=== PATIENT | female | born 1985 | race Hispanic/Latino ===

== ENCOUNTER 2017-04-29 02:14 | Inpatient (IN) | payer MEDICAID, OTHER, SELFPAY ==
[2017-04-29] MEDS: Lactated Ringer's 1,000 ML IV SCH ×3 (03:00→23:33)
[2017-04-29] MEDS ORDERED: Lidocaine 1% (PF) 30 ML VIAL SC PRN (03:34)
[2017-04-29] MEDS ORDERED: Carboprost 250 MCG/ML AMP IM PRN (03:34)
[2017-04-29] MEDS ORDERED: Promethazine HCl 25 MG/ML VIAL IM PRN (03:34)
[2017-04-29] MEDS ORDERED: LR / Pitocin 40 units/1000 ml 1,000 ML IV PRN (03:34)
[2017-04-29] MEDS ORDERED: Ibuprofen 800 MG TAB PO PRN (03:34)
[2017-04-29] MEDS ORDERED: Methylergonovine 0.2 MG/ML VIAL IM PRN (03:34)
[2017-04-29] MEDS ORDERED: HYDROcodone/Acetaminophen 5/325 mg Tablet PO PRN (03:34)
[2017-04-29] MEDS ORDERED: Acetaminophen 500 MG TAB PO PRN (03:34)
[2017-04-29] MEDS ORDERED: Diphenoxylate HCl/Atropine Tablet PO PRN (03:34)
[2017-04-29] MEDS ORDERED: Ondansetron HCl/PF 4 MG/2 ML Vial IVP PRN (03:34)
[2017-04-29] MEDS ORDERED: Misoprostol 200 MCG TAB PR PRN (03:34)
[2017-04-29 03:41] VITALS: BMI 37.5
--- NOTE | 2017-04-29 03:41 | PDOC.LDHP ---
Labor and Delivery H&P Chief complaint: contractions HPI: 31 yo @ 40.1 by LMP and 10.4w US here with complaint of contractions since yesterday morning. Contractions started every 5-10 minutes and progressively became more frequent throughout the day. She noticed a small amount of blood tinged mucus per vagina earlier in the day. She denies des loss of fluid or vaginal bleeding. There is consistent movement. Her has been significant for elevated blood glucose on 1 hour GTT, however 3 hour was negative. Previous deliveries were uncomplicated Current gestational age (weeks): 40 (40.1) Due date: 04/28/17 Dating criteria: last menstrual period, first trimester ultrasound Grav: 3 Para: 2 Current complications: none Abnormal US findings: No Current medications: pre- vitamins Allergies/Adverse Reactions: Allergies Allergy/AdvReac Type Severity Reaction Status Date / Time No Known Allergies Allergy Unverified 04/29/17 02:33 Social history: none - Physical Exam Vital signs reviewed and normal: yes General: breathing through contractions Heart: RRR Lungs: CTAB Abdomen: gravid (NTTP) Extremeties: no edema FHT: category 1, variability present, absent or minimal variables [place] contractions every: 3-5 - Vaginal Exam cm dilated: 5 Effacement: 75% Station: -1 - OB Labs Blood type: O RH: positive Antibody Screen: negative HIV: negative RPR: negative HEPSAg: negative 1 hour GCT: positive 3 hour GTT: negative GBS: negative Urine drug screen: negative Rubella: immune - Assessment L&D Assessment: term patient in labor - Plan Plan: admit to L&D, labor augmentation if indicated -: This is a term in labor. Will admit to L&D. Patient is requesting epidural anesthesia, consult has been placed. Make NPO except ice chips. Continuous monitoring once epidural is placed. Augment labor with fluid bolus, position change, O2 as needed. Q2 CVE
[2017-04-29 03:55] LABS: Hemoglobin 14.2 g/dL (12.0-16.0); Mean Corpuscular HGB CONC 33.1 g/dL (32.0-36.0); Mean Corpuscular Hemoglobin 30.7 pg (27.0-31.0); Mean Corpuscular Volume 92.9 fl (81.0-99.0); Mean Platelet Volume 7.4 fL (7.4-10.4); Platelet Count 257 thou/uL (130-400); RBC Distribution Width 12.8 % (11.5-14.5); Red Blood Cell (RBC) Count 4.63 mill/uL (4.20-5.40); White Blood Cell (WBC) Count 9.7 thou/uL (4.8-10.8)
[2017-04-29] MEDS ORDERED: DISCONTINUE ALL PREVIOUS NARCOTICS FS SCH (04:00)
[2017-04-29] MEDS ORDERED: Bupivacaine 0.5% 20 ML, Fentanyl 400 MCG in Sodium Chloride 0.9% 72 ML EPIDURAL SCH (04:00)
[2017-04-29 04:15] LABS: HBSAg Index 0.22 S/CO (0-0.99); Hep B Surf Ag Non-Reactive S/CO (NonReactive); Syphilis Antibody Nonreactive (Nonreactive); Syphilis Antibody Index 0.04 S/CO (<1.00 Non-Reactive)
[2017-04-29] MEDS ORDERED: ePHEDrine/0.9% NaCl/PF SYRINGE 50 mg/10 ml SLOW IVP PRN (04:40)
[2017-04-29] MEDS ORDERED: Eucerin (Mineral Oil/Petrolatum,White) 30 gm Jar TOP PRN (04:40)
[2017-04-29] MEDS ORDERED: Lactated Ringer's 500 ML IV PRN (04:40)
[2017-04-29] MEDS ORDERED: Naloxone HCl 0.4 mg/ml Vial IVP PRN ×2 (04:40)
[2017-04-29] MEDS ORDERED: Acetaminophen 325 MG TAB PO PRN (04:40)
[2017-04-29] MEDS ORDERED: Fentanyl 4mcg/Marcaine 0.1% Cassette 100 ML EPIDURAL SCH (04:45)
[2017-04-29] MEDS ORDERED: Communication Order-Pharmacy FS SCH (04:45)
--- NOTE | 2017-04-29 04:53 | PDOC.LDPN ---
Labor & Delivery Progress Note - Subjective Subjective: comfortable - Objective Vital signs reviewed and normal: yes General: NAD, resting Uterine fundus: non tender Dilation: 6 Effacement: 75% Station: -1 FHT: category 1, variability present, absent or minimal variables [place] contractions every: 3-5 - Assessment (1) Term Code(s): Z34.80 - ENCOUNTER FOR SUPRVSN OF NORMAL , UNSP TRIMESTER Current Visit: Yes Status: Acute Comment: Epidural placed. Pain is now at 2/ 10. Continued Cat 1 strip. Continue current plan of care, recheck in 2 hours. Plan: continue plan of care
--- NOTE | 2017-04-29 06:45 | PDOC.LDPN ---
Labor & Delivery Progress Note - Subjective Subjective: comfortable - Objective Vital signs reviewed and normal: yes General: NAD, resting, breathing through contractions Uterine fundus: non tender Dilation: 7 Effacement: 90% Station: -1 FHT: category 1, variability present, absent or minimal variables [place] contractions every: 4 - Assessment (1) Term Code(s): Z34.80 - ENCOUNTER FOR SUPRVSN OF NORMAL , UNSP TRIMESTER Current Visit: Yes Status: Acute Comment: Pain is well managed. Membrains still intact. No decreased movement. Cat 1 strip. Continue current plan of care, recheck in 2 hours.
[2017-04-29] MEDS ORDERED: Misoprostol 200 MCG TAB ONE (09:10)
[2017-04-29] MEDS ORDERED: LR 500 ML/Oxytocin 10 units 500 ML IV SCH (09:15)
--- NOTE | 2017-04-29 09:21 | PDOC.LDPN ---
Labor & Delivery Progress Note - Subjective Subjective: comfortable, no concerns - Objective Vital signs reviewed and normal: yes General: NAD, resting Uterine fundus: non tender SVE: /-1 FHT: category 1, early decelerations, variability present [place] contractions every: 4-7 min Procedures: AROM performed with scant thick to particulate meconium AROM: meconium stained fluid - Assessment (1) Term Code(s): Z34.80 - ENCOUNTER FOR SUPRVSN OF NORMAL , UNSP TRIMESTER Current Visit: Yes Status: Acute Plan: continue plan of care, pitocin for augmentation -: 31yo at 40.1wk in active labor-- 1) TIUP- s/p AROM with thick particulate mec & minimal fluid upon rupture. remains Cat I strip and VSS. pain well controlled with epidural. Will add pitocin for augmentation as contraction pattern irregular Q4-7min. Expectant management.
[2017-04-29] MEDS ORDERED: Bupivacaine 0.25% HCL 30 ML VIAL ONE (11:11)
--- NOTE | 2017-04-29 11:23 | PDOC.OPDEL ---
OB Operative/Delivery Note Delivery Dr/Surgeon: Sofía Weiner DO ([id number]) & Lissy Loera DO (attending) Pre-Delivery Diagnosis: active labor Procedure/Post Delivery Dx: spontaneous vaginal delivery Weeks gestation: 40 (40.1 by 10.4wk US) Anesthesia: epidural - Findings A Sex: female - 1 min: 9 - 5 min: 9 - Additional Findings/Plan Placenta delivered: spontaneous Repaired Obstetrical Laceration: 2nd degree (due to shoulder rotation, repaired w/ 3-0 vicryl suture) Estimated blood loss: 200 Compilations/Other Findings: none Post delivery plan: routine recovery <Sofía Weiner - Last Filed: 04/29/17 11:22> Operative Note - Operative Note Operative Note: 31yo -> at 40.1 wks who delivered a viable female at 1049 on 04/29/2017. Following an uneventful antepartum course, a vigorous female head was deliveredover an intact perineum in the ANTONINO position. The anterior shoulder was somewhat rotated and caused a second degree perineal laceration. The remainder of the body then delivered. No nuchal cord. The head was held down and mouth and nares were bulb suctioned. Delayed cord clamping was performed. The cord was then clamped and cut and cord blood collected. Placenta delivered intact with a 3 vessel cord noted. Fundal massage was performed and the fundus was firm. The cervix was inspected and found to be free of lacerations. 2nd Degree perineal laceration was noted and repaired with 4-0 Vicryl suture in the usual fashion with good approximation and hemostasis. Infant went to nursery in good condition for routine care. Apgars were 9 & 9 at 1 & 5 minutes, respectively. Patient tolerated delivery well and went to after routine recovery/ care. <Sofía Weiner - Last Filed: 04/29/17 11:22> Attending Addendum - Attending Addendum Date/Time: 04/30/17 1020 I personally evaluated the patient and discussed the management with Dr. Weiner on 04/29/17. I was present for the entire procedure. I agree with her documentation above with any addition or exceptions noted below. now 3 at term with and 2nd degree lac. No complications, routine recovery. <Lissy Loera - Last Filed: 04/30/17 10:21>
[2017-04-29] MEDS ORDERED: LR / Pitocin 40 units/1000 ml 1,000 ML ONE (13:45)
[2017-04-29] MEDS ORDERED: Bisacodyl 10 MG SUPP PR PRN (14:31)
[2017-04-29] MEDS ORDERED: Adacel (T-DAP) 0.5 ML VIAL IM ONE (14:31)
[2017-04-29] MEDS ORDERED: Lanolin Ointment 7 GM TUBE TOP PRN (14:31)
[2017-04-29] MEDS ORDERED: Milk Of Magnesia 30 ML UDCUP PO PRN (14:31)
[2017-04-29] MEDS: Ferrous Sulfate 325 MG TAB PO SCH (15:00)
[2017-04-29] MEDS ORDERED: Benzocaine/Menthol 20-0.5% 60 ML CAN TOP PRN (19:00)
[2017-04-29] MEDS: Ibuprofen 800 MG TAB PO PRN (20:26)
[2017-04-29] MEDS: Docusate Calcium (SURFAK) 240 MG CAP PO SCH (20:26)
[2017-04-30] MEDS: Lactated Ringer's 1,000 ML IV SCH ×2 (00:42→11:15)
[2017-04-30] MEDS: Ibuprofen 800 MG TAB PO PRN (05:10)
[2017-04-30 05:42] LABS: Hemoglobin 12.7 g/dL (12.0-16.0); Mean Corpuscular HGB CONC 33.2 g/dL (32.0-36.0); Mean Corpuscular Hemoglobin 30.7 pg (27.0-31.0); Mean Corpuscular Volume 92.3 fl (81.0-99.0); Mean Platelet Volume 6.8 fL (7.4-10.4); Platelet Count 220 thou/uL (130-400); RBC Distribution Width 12.7 % (11.5-14.5); Red Blood Cell (RBC) Count 4.15 mill/uL (4.20-5.40); White Blood Cell (WBC) Count 10.7 thou/uL (4.8-10.8)
[2017-04-30 08:52] VITALS: BP 95/57; TEMP 97.9
[2017-04-30] MEDS ORDERED: Prenatal Vitamin 1 TAB PO SCH (09:00)
[2017-04-30] MEDS: Ferrous Sulfate 325 MG TAB PO SCH (09:12)
[2017-04-30] MEDS: Docusate Calcium (SURFAK) 240 MG CAP PO SCH (09:13)
--- NOTE | 2017-04-30 09:14 | PDOC.PP ---
Post Progress Note Post Day #: 1 Subjective: feeling well. minimal cramping and bleeding. desiring to go home later today if able. undecided regarding contraception. PO intake tolerated: yes Flatus: yes Ambulation: yes Vital Signs (12 hours) Temp Pulse Resp BP BP 04/30/17 08:00 97.9 F 64 16 95/57 L 04/30/17 05:15 98.5 F 62 16 92/55 L 04/30/17 00:00 98.2 F 64 16 95/50 L Weight Weight 84.368 kg - Physical Examination General: NAD Cardiovascular: no m/r/g, RRR Respiratory: clear to auscultation bilaterally, non-labored breathing Abdominal: + bowel sounds, no distention, appropriately TTP Fundus firm & at: below umbilicus Extremities: negative homans (B) Perineum: dry, no hematoma noted Neurological: no gross focal deficits Psychiatric: A&Ox3, normal affect Result Diagrams: 04/30/17 04:59 Additional Labs: Post Labs Blood Type O POSITIVE 04/29/17 03:00 Hep Bs Antigen Non-Reactive S/CO (NonReactive) 04/29/17 03:34 (1) Term Code(s): Z34.80 - ENCOUNTER FOR SUPRVSN OF NORMAL , UNSP TRIMESTER Status: Acute Comment: progressing as anticipated with course as multiparous female s/p . may d/c home later today pending hospital course with f/u at pn in 2 wks and further discussion on contraceptive options. <Sofía Weiner - Last Filed: 04/30/17 09:12> Vital Signs (12 hours) Temp Pulse Resp BP BP 04/30/17 08:00 97.9 F 64 16 95/57 L 04/30/17 05:15 98.5 F 62 16 92/55 L 04/30/17 00:00 98.2 F 64 16 95/50 L Weight Weight 84.368 kg Result Diagrams: 04/30/17 04:59 Additional Labs: Post Labs Blood Type O POSITIVE 04/29/17 03:00 Hep Bs Antigen Non-Reactive S/CO (NonReactive) 04/29/17 03:34 <Lissy Loera - Last Filed: 04/30/17 10:33> Attending Addendum - Attending Addendum Date/Time: 04/30/17 1032 I personally evaluated the patient and discussed the management with Dr. Weiner on 04/30/17. I agree with the History, Examination, Assessment and Plan documented above with any addition or exceptions noted below. Doing well s/p . Ambulating, tolerating PO, normal lochia. well. GBS negative. Discharge home later today. <Lissy Loera - Last Filed: 04/30/17 10:33>
== END 2017-04-30 15:40 | disposition home or self-care (01) | DRG 775 ==
LOC: L&D/OP 02:14 → L&D 03:48 → 3SW 14:18
PROVIDERS: ADMIT Family Medicine; ATTEND Family Medicine
PROC: 10E0XZZ Delivery of Products of Conception, External Approach (ICD-10-PCS; principal; 2017-04-29)
PROC: 0KQM0ZZ Repair Perineum Muscle, Open Approach (ICD-10-PCS; 2017-04-29)
PROC: 10907ZC Drainage of Amniotic Fluid, Therapeutic from Products of Conception, Via Natural or Artificial Opening (ICD-10-PCS; 2017-04-29)
DX: O70.1 Second degree perineal laceration during delivery (principal); Z37.0 Single live birth; O77.0 Labor and delivery complicated by meconium in amniotic fluid; Z3A.40 40 weeks gestation of pregnancy
CPT/HCPCS: 36415; 51702; 85027; 86780; 87340; 99285; J2001; J3010; J3490; J7050; J7120; S0020